=== PATIENT | male | born 1950 | race African-American/Black ===

== ENCOUNTER 2017-01-24 08:14 | Emergency (ER) | payer OTHER ==
[~2017-01-24] VITALS: Ht 182.9 cm; Wt 93.0 kg
[2017-01-24 12:33] VITALS: BP 120/79
== END 2017-01-24 12:33 | disposition home or self-care (01) ==
LOC: ED 08:14
DX: S20.211A Contusion of right front wall of thorax, initial encounter (principal); I10 Essential (primary) hypertension; Z87.891 Personal history of nicotine dependence; W01.0XXA Fall on same level from slipping, tripping and stumbling without subsequent striking against object, initial encounter; Y93.89 Activity, other specified; Y92.091 Bathroom in other non-institutional residence as the place of occurrence of the external cause; Y99.8 Other external cause status
CPT/HCPCS: J1885

== ENCOUNTER 2017-11-08 07:14 | Emergency (ER) | payer OTHER, MEDICAID ==
[~2017-11-08] VITALS: Ht 182.9 cm; Wt 90.7 kg
[2017-11-08 07:20] VITALS: Ht 182.9 cm; Wt 90.7 kg
[2017-11-08 07:59] LABS: BASOPHIL % 0.7 % (0-2); PLATELET COUNT 244 x10^3mcL (130-400); RED CELL DISTRIBUTION WIDTH 14.4 % (11.5-14.5)
[2017-11-08 08:04] LABS: CALCIUM 8.9 mg/dL (8.5-10.1); CARBON DIOXIDE 27.4 mmol/L (21-32); CREATININE SERUM 1.3 mg/dL (0.7-1.3); POTASSIUM SERUM 3.9 mmol/L (3.5-5.1)
[2017-11-08 08:05] LABS: ALBUMIN 3.7 g/dL (3.4-5.0); BILIRUBIN TOTAL 0.76 mg/dL (0.20-1.00); MAGNESIUM 1.8 mg/dL (1.8-2.4); TOTAL PROTEIN, SERUM 7.4 g/dL (6.4-8.2)
[2017-11-08 08:18] LABS: microscopic required? NO
[2017-11-08 08:57] LABS: urine erythrocyte NEGATIVE (NEGATIVE)
[2017-11-08 11:36] VITALS: BP 124/82
== END 2017-11-08 11:36 | disposition home or self-care (01) ==
LOC: ED 07:14
PROVIDERS: Emergency Medicine
DX: I45.10 Unspecified right bundle-branch block (principal); I10 Essential (primary) hypertension
CPT/HCPCS: 83880; J8597

== ENCOUNTER 2019-07-11 13:05 | Emergency (ER) | payer OTHER, MEDICAID ==
[~2019-07-11] VITALS: Ht 182.9 cm; Wt 90.7 kg
[2019-07-11 13:14] VITALS: Ht 182.9 cm; Wt 90.7 kg
[2019-07-11 17:12] VITALS: BP 140/89
== END 2019-07-11 17:12 | disposition home or self-care (01) ==
LOC: ED 13:05
DX: S39.012A Strain of muscle, fascia and tendon of lower back, initial encounter (principal); X50.0XXA Overexertion from strenuous movement or load, initial encounter; Y93.89 Activity, other specified; Y92.89 Other specified places as the place of occurrence of the external cause; Y99.8 Other external cause status; I10 Essential (primary) hypertension; E78.00 Pure hypercholesterolemia, unspecified